=== PATIENT | female | born 1950 | race Caucasian/White ===

== ENCOUNTER 2021-09-16 04:11 | Day surgery (SDC) | payer OTHER ==
[2021-09-10 15:53] VITALS: BMI 34.0
[~2021-09-16 04:11] MED LIST: HEPARIN NA (PORCINE) 5,000 UNITS/ML 1ML VIAL TP ONE; LIDOCAINE HCL 1%, 10 MG/ML (20ML VIAL) NR ONE
[2021-09-16] MEDS ORDERED: HEPARIN NA (PORCINE) 5,000 UNITS/ML 1ML VIAL ONE (08:15)
[2021-09-16] MEDS ORDERED: MIDAZOLAM HCL 2 MG/2 ML SINGLE DOSE VIAL ONE (08:54)
[2021-09-16] MEDS ORDERED: FENTANYL CITRATE/PF 50 MCG/ML VIAL ONE ×2 (08:54→11:08)
[2021-09-16] MEDS ORDERED: PROPOFOL 20 ML ONE ×4 (08:55→10:10)
[2021-09-16] MEDS ORDERED: ceFAZolin SODIUM 1 GM VIAL ONE (08:58)
[2021-09-16] MEDS ORDERED: ceFAZolin SODIUM 1 GM VIAL IVPB ONE (09:03)
[2021-09-16] MEDS ORDERED: DEXAMETHASONE SOD PHOSPHATE 4 MG/1 ML VIAL ONE (09:05)
[2021-09-16] MEDS ORDERED: LIDOCAINE HCL 1%, 10 MG/ML (20ML VIAL) NR ONE (09:10)
[2021-09-16] MEDS ORDERED: HEPARIN NA (PORCINE) 5,000 UNITS/ML 1ML VIAL TP ONE (09:12)
[2021-09-16] MEDS ORDERED: CLOPIDOGREL BISULFATE 75 MG TABLET (FP) PO ONE ×2 (11:00→11:30)
[2021-09-16] MEDS ORDERED: CLOPIDOGREL BISULFATE 75 MG TABLET (FP) ONE (11:29)
[2021-09-16] MEDS ORDERED: oxyCODONE HCL 5 MG TABLET PO PRN (12:16)
[2021-09-16] MEDS ORDERED: ONDANSETRON 4 MG/2 ML VIAL IVPUSH PRN (12:16)
[2021-09-16 14:16] VITALS: BP 160/72; PULSE 75; TEMP 98
== END 2021-09-16 13:40 | disposition home or self-care (01) ==
LOC: JASU-SURG 04:11
PROVIDERS: ATTEND Surgery Vascular Surgery
PROC: 047K3D1 Dilation of Right Femoral Artery with Intraluminal Device, using Drug-Coated Balloon, Percutaneous Approach (ICD-10-PCS; principal; 2021-09-16 09:00)
DX: I70.211 Atherosclerosis of native arteries of extremities with intermittent claudication, right leg (principal)
CPT/HCPCS: 37226; C1877; C2623; 76000-TC-FY; 86850; 86900; 86901; 94760; J1644

== ENCOUNTER 2023-02-23 05:00 | Day surgery (SDC) | payer OTHER ==
[2023-02-22 09:47] VITALS: BMI 32.9
[~2023-02-23 05:00] MED LIST changes: -HEPARIN NA (PORCINE) 5,000 UNITS/ML 1ML VIAL TP ONE; +IOVERSOL 320 MG/ML ML IV ONE; +LIDOCAINE HCL 1%, 10 MG/ML (20ML VIAL) INF ONE; -LIDOCAINE HCL 1%, 10 MG/ML (20ML VIAL) NR ONE
[2023-02-23] MEDS ORDERED: LIDOCAINE HCL 1%, 10 MG/ML (20ML VIAL) ONE (07:12)
[2023-02-23] MEDS ORDERED: HEPARIN NA (PORCINE) 5,000 UNITS/ML 1ML VIAL ONE (07:13)
[2023-02-23] MEDS ORDERED: HEPARIN NA (PORCINE) 5,000 UNITS/ML 1ML VIAL IV ONE (07:35)
[2023-02-23] MEDS ORDERED: MIDAZOLAM HCL 2 MG/2 ML SINGLE DOSE VIAL ONE (08:02)
[2023-02-23] MEDS ORDERED: PROPOFOL 40 ML ONE (08:02)
[2023-02-23] MEDS ORDERED: FENTANYL CITRATE/PF 50 MCG/ML VIAL ONE (08:02)
[2023-02-23] MEDS ORDERED: IOVERSOL 320 MG/ML ML IV ONE (09:35)
[2023-02-23] MEDS ORDERED: LIDOCAINE HCL 1%, 10 MG/ML (20ML VIAL) INF ONE (09:35)
[2023-02-23] MEDS ORDERED: ONDANSETRON 4 MG/2 ML VIAL ONE (09:41)
[2023-02-23] MEDS ORDERED: DEXAMETHASONE SOD PHOSPHATE 4 MG/1 ML VIAL ONE (09:41)
[2023-02-23] MEDS ORDERED: KETOROLAC TROMETHAMINE 30 MG/1 ML VIAL ONE (09:41)
[2023-02-23] MEDS ORDERED: ceFAZolin SODIUM 1 GM VIAL ONE ×2 (09:41)
[2023-02-23] MEDS ORDERED: oxyCODONE HCL 5 MG TABLET PO PRN (09:45)
[2023-02-23] MEDS ORDERED: LACTATED RINGERS SOLUTION 1,000 ML IV SCH (09:45)
[2023-02-23] MEDS ORDERED: ONDANSETRON 4 MG/2 ML VIAL IVPUSH PRN (09:45)
[2023-02-23 11:06] VITALS: RESP 18
[2023-02-23 11:41] VITALS: BP 142/67; PULSE 67; TEMP 97.6
== END 2023-02-23 11:40 | disposition home or self-care (01) ==
LOC: JASU-SURG 05:00
PROVIDERS: ATTEND Surgery Vascular Surgery
PROC: 047K3D1 Dilation of Right Femoral Artery with Intraluminal Device, using Drug-Coated Balloon, Percutaneous Approach (ICD-10-PCS; principal; 2023-02-23 08:00)
DX: I70.211 Atherosclerosis of native arteries of extremities with intermittent claudication, right leg (principal)
CPT/HCPCS: 37226; C1877; 76000-TC-FY; 94760; C1760; C1769; C1776; C1897; J1644